=== PATIENT | male | born 1945 | race African-American/Black ===

== ENCOUNTER 2021-05-27 18:39 | Emergency (ER) | payer OTHER, SELFPAY ==
[2021-05-27] VITALS (26 sets, daily range): BP systolic 118–133; BP diastolic 76–87; PULSE 60–73; RESP 13–25; TEMP 36.3; O2SAT 92–100
--- NOTE | ~2021-05-27 | XR_ITS ---
EXAMINATION: XR chest 1V portable 05/27/2021 19:06 INDICATION: Dyspnea PROCEDURE: AP portable chest COMPARISON: No prior studies for comparison. FINDINGS: The lungs are clear. The cardiomediastinal silhouette is within normal limits. There are no pleural effusions. There is no pneumothorax suspected. IMPRESSION: 1: NO ACUTE CARDIOPULMONARY DISEASE. Reviewed, dictated and finalized at location A. TMENT COUNSELOR
--- NOTE | ~2021-05-27 | CT_ITS ---
EXAMINATION: CT abdomen pelvis wo con DATE: 05/27/2021 20:59 INDICATION: Elevated liver enzymes TECHNIQUE: Computed tomography (CT) of the abdomen and pelvis was performed without intravenous contr ast. The dose-length product was 1585.19 mGy-cm. Automated exposure control and iterative reconstruct ion technique were employed. COMPARISON: None. FINDINGS: There is dependent atelectasis. Cardiomegaly. No significant pleural or pericardial effusio n. There is gynecomastia. There is a G-tube in expected position. There is atherosclerosis of the aor ta without aneurysm. There are, spleen, pancreas, adrenal glands and kidneys are unremarkable. Gallbladder is present. Non obstructive bowel gas pattern. Moderate colonic fecal loading. There are radiation therapy implants i n the prostate gland. There are coarse amorphous calcifications in the left posterior pelvic soft tis sues, likely related to old trauma or infection. Moderate lumbar spondylosis. IMPRESSION: 1. No acute abdominal abnormality. 2: Cardiomegaly. 3: Gynecomastia. Reviewed, dictated and finalized at location A. EL TESTER
--- NOTE | ~2021-05-27 | XR_ITS ---
XR knee LT 3V 05/27/2021 19:35 Indication: Left knee pain Procedure: 3 views left knee Comparison: No prior studies for comparison. Findings: There is moderate tricompartment osteoarthritis with chondrocalcinosis. There is extensive vascular calcification. No acute fracture or traumatic malalignment. There is amorphous cluster of ca lcifications in the suprapatellar region, likely chronic. Impression: 1: No acute bone or joint abnormality. 2: Moderate osteoarthritis. Reviewed, dictated and finalized at location A. THAND TEACHER Impression: 1: No acute bone or joint abnormality. 2: Moderate osteoarthritis.
--- NOTE | 2021-05-27 18:55 | ECG_ITS ---
Measurements Intervals [place] Rate: 67 P: [place]: 0 QRS: -17 QRSD: 90 T: 76 QT: 408 QTc: 431 Interpretive Statements JUNCTIONAL RHYTHM BORDERLINE ST-T WAVE ABNORMALITY- HIGH LATERAL LEADS BASELINE ARTIFACT- I, II, III, AVR, AVL, AVF, V1-V6 ABNORMAL ECG Electronically Signed On 05-27-2021 19:43:40 [employer] by Alban Waggoner D.O.
[2021-05-27 20:09] LABS: Basophils Absolute Auto 0.1 K/mm3 (0.0-0.1); Basophils Percent Auto 0.5 % (0.2-1.2); Eosinophils Absolute Auto 0.1 K/mm3 (0-0.3); Eosinophils Percent Auto 0.9 % (0-4.4); Hematocrit 42.2 % (42.0-52.0); Hemoglobin 13.3 g/dL (14.0-18.0); Immature Granulocyte Absolute 0.07 K/mm3 (0.00-0.031); Immature Granulocyte Percent A 0.7 % (0-0.5); Lymphocytes Absolute Auto 1.46 K/mm3 (0.9-3.2); Lymphocytes Percent Auto 14.1 % (18.3-44.2); Mean Corpuscular HGB Conc 31.5 g/dl (32-36); Mean Corpuscular Hemoglobin 29.7 pg (26-34); Mean Corpuscular Volume 94.2 fl (80-100); Mean Platelet Volume 9.9 fl (7.4-10.4); Monocytes Absolute Auto 0.6 K/mm3 (0.1-0.6); Monocytes Percent Auto 5.8 % (2.6-8.5); Neutrophils Absolute Auto 8.1 K/mm3 (1.3-6.7); Platelet Count Result 317 k/mm3 (150-375); Red Blood Count 4.48 M/mm3 (4.6-6.20); Red Cell Distribution Width 14.1 % (11.5-14.5); White Blood Count 10.3 K/mm3 (4.5-10.0)
--- NOTE | 2021-05-27 20:16 | ED.GENADULT ---
HPI - General Adult General Chief complaint: Shortness of Breath/Dyspnea Stated complaint: increased lethargy increased sob Time Seen by Provider: 05/27/21 19:00 History of Present Illness HPI narrative: Patient is a 76-year-old male who presents ER with acting less [facility]. Apparently he was evaluated and his pulse oximeter reading was 38% at the prison. When EMS arrived he was satting 100% on room air. Patient is currently 98 to 99% on room air. Patient is bedbound due to a hemorrhagic stroke. reports that he is still able to move parts left side of his body. He moves his left arm without issue but his left leg is very weak. Apparently he was trying to get out of bed a couple days ago and since then he has been having left knee pain. Attempts to move the knee resulted in pain. Patient can sometimes answer yes/no questions but otherwise cannot communicate. Related Data Home Medications Medication Instructions Recorded Confirmed acetaminophen 650 mg Q6H PRN 05/27/21 amlodipine 10 mg PO DAILY 05/27/21 apixaban [Eliquis] 5 mg PO BID 05/27/21 atorvastatin 40 mg PO HS 05/27/21 bicalutamide 50 mg PO DAILY 05/27/21 clonidine HCl 0.1 mg PO BID 05/27/21 furosemide [Lasix] 40 mg PO DAILY 05/27/21 lisinopril 40 mg PO DAILY 05/27/21 Allergies Allergy/AdvReac Type Severity Reaction Status Date / Time No Known Allergies Allergy Verified 05/27/21 18:58 Review of Systems Review of Systems: ROS unobtainable: Yes unobtainable due to medical condition Musculoskeletal: Musculoskeletal: Reports arthralgias and Denies joint swelling PMFSH Past Medical History Medical History (Updated 05/27/21 @ 22:40 by Stephen Velasco MD) CHF (congestive heart failure) Hemorrhagic stroke Hypercholesterolemia Hypertension Surgical History Surgical History (Updated 05/27/21 @ 20:23 by Stephen Velasco MD) H/O brain surgery Exam Narrative: GENERAL: Chronically ill-appearing, well-nourished, and in no acute distress. HEAD: Normocephalic, atraumatic. EYES: PERRL and EOMI. CHEST: Clear to auscultation. No respiratory distress. HEART: Regular rate and rhythm. Normal peripheral pulses. ABDOMEN: Soft, nontender, nondistended. EXTREMITIES: Normal ROM LUE. right hemiparesis. LLE with weakness and in air boot. Pain in knee with passive ROM and tender medially along the joint line. SKIN: Warm, dry, no rash. NEURO: Awake and alert, unable to communicate. Course Course Emergency Course: Work-up revealed transaminitis. Patient was without right upper quadrant tenderness. CT scan unremarkable of the abdomen. Patient without any nausea or vomiting. No hypoxia. Vital Signs Vital signs: Vital Signs Temperature 97.4 F L 05/27/21 18:40 Pulse Rate 67 05/27/21 18:40 Respiratory Rate 14 05/27/21 18:40 Blood Pressure 121/79 05/27/21 18:40 Pulse Oximetry 95 05/27/21 18:40 Temperature 97.4 F L 05/27/21 18:40 Pulse Rate 68 05/27/21 21:45 Respiratory Rate 23 H 05/27/21 21:45 Blood Pressure 120/84 05/27/21 21:31 Pulse Oximetry 97 05/27/21 21:16 Medical Decision Making Vital Signs Vital Signs: Vital Signs Temperature 97.4 F L 05/27/21 18:40 Pulse Rate 67 05/27/21 18:40 Respiratory Rate 14 05/27/21 18:40 Blood Pressure 121/79 05/27/21 18:40 Pulse Oximetry 95 05/27/21 18:40 Temperature 97.4 F L 05/27/21 18:40 Pulse Rate 68 05/27/21 21:45 Respiratory Rate 23 H 05/27/21 21:45 Blood Pressure 120/84 05/27/21 21:31 Pulse Oximetry 97 05/27/21 21:16 Lab Data Result diagrams: 05/27/21 20:02 05/27/21 20:02 Labs: Lab Results 05/27/21 05/27/21 05/27/21 Range/Units 20:01 20:02 20:02 WBC 10.3 H (4.5-10.0) K/mm3 RBC 4.48 L (4.6-6.20) M/mm3 Hgb 13.3 L (14.0-18.0) g/dL Hct 42.2 (42.0-52.0) % MCV 94.2 (80-100) fl MCH 29.7 (26-34) pg MCHC 31.5 L (32-36) g/dl RDW
[2021-05-27 20:22] LABS: Fractional Inspired Oxygen 28 %; HCO3 VBG 26.8 mEq/l (24.0-30.0); PCO2 VBG 44.8 mmHg (42.0-48.0); pH VBG 7.394 (7.300-7.400)
[2021-05-27 20:28] LABS: Alanine Aminotransferase 343 U/L (4-50); Albumin Level 3.5 g/dL (3.5-5.1); Alkaline Phosphatase 134 U/L (38-126); Anion Gap 8 mmol/L (8-16); Aspartate Amino Transferase 186 U/L (17-59); Bilirubin,Total 0.6 mg/dL (0.2-1.3); Blood Urea Nitrogen 45 mg/dL (9-20); Calcium 9.6 mg/dL (8.4-10.2); Carbon Dioxide 28 mmol/L (22-30); Chloride 105 mmol/L (98-107); Estimated CRCL calculation 61 ml/min; Estimated Glomerular Filt Rate > 60; Glucose 129 mg/dL (65-110); Potassium 4.9 mmol/L (3.4-5.0); Sodium 141 mmol/L (137-145)
[2021-05-27 20:46] LABS: Add Urine Microscopic? YES; Appearance Urine Clear (Clear); Bilirubin Urine Negative (Negative); Blood Urine Negative (Negative); Color Urine Yellow (Yellow); Glucose Urine UA Negative (Negative); Ketones Urine Negative (Negative); Leukocyte Esterase Ur Negative LEU/UL (Negative); Nitrate Urine Negative (Negative); Protein Urine Negative (Negative); RBC Urine 0-2 /hpf (0-2); WBC Urine 0-3 /hpf
[2021-05-27 21:34] LABS: Influenza A QL RT-PCR Negative (Negative); Influenza B QL RT-PCR Negative (Negative); SARS-CoV-2 RNA PCR Negative
--- NOTE | 2021-05-27 23:08 | PC.NURSE ---
Report received from DICK Cardoza. Assumed care of patient at this time. Patient resting on stretcher with at bedside.
--- NOTE | 2021-05-27 23:25 | PC.NURSE ---
[facility] here to transport patient back to [place]. Discharge VS are 69bpm, 19 RR, 96% on RA, and 130/85bp.
== END 2021-05-27 23:33 ==
PROVIDERS: Emergency Medicine; Emergency Provider Emergency Medicine; PCP Family Medicine
DX: R74.01 Elevation of levels of liver transaminase levels (principal); M25.562 Pain in left knee; Z20.822 Contact with and (suspected) exposure to COVID-19; I50.9 Heart failure, unspecified; E78.00 Pure hypercholesterolemia, unspecified; I10 Essential (primary) hypertension; I69.151 Hemiplegia and hemiparesis following nontraumatic intracerebral hemorrhage affecting right dominant side; M17.12 Unilateral primary osteoarthritis, left knee; R94.31 Abnormal electrocardiogram [ECG] [EKG]; I51.7 Cardiomegaly; N62 Hypertrophy of breast; Z79.01 Long term (current) use of anticoagulants
CPT/HCPCS: 36415; 71045; 73562; 74176; 80053; 81001; 82803; 85025; 87502; 93005; 99284; C9803; U0003; U0005